=== PATIENT | male | born 1990 | race American Indian/Alaskan Native ===

== ENCOUNTER 2017-01-04 23:39 | Emergency (ER) | payer OTHER ==
--- NOTE | 2017-01-05 05:26 | Emergency Department Report ---
HPI - General Chief Complaint: Dental/Oral Time Seen by Provider: 01/05/17 04:24 - HPI HPI: Patient here reported that he has right lower jaw pain 4 days denies any trauma. He said he thinks he has a toothache. He declined Tylenol in triage area. Denies any fever or chills pain is 3/10 and aching. Located to his right upper back tooth. Denies any nausea or vomiting. No accessed the dentist. Taking [id number] medication without any relief. ED Past Medical Hx - Past Medical History Previous Medical History?: No - Surgical History Past Surgical History?: No - Family History Family history: no significant - Social History Smoking Status: Never Smoker Substance Use Type: Alcohol Other Social History: single - Medications Home Medications: Home Medications Medication Instructions Recorded Confirmed Last Taken Type Carbamide Peroxide [Earwax 15 ml OT BID #1 09/01/15 Unknown Rx Treatment] Ibuprofen [Motrin 800 MG tab] 800 mg PO Q8HR PRN #30 tablet 09/01/15 Unknown Rx Loratadine/Pseudoephedrine 1 tab PO DAILY #20 tablet 09/01/15 Unknown Rx [Claritin-D 24Hr] Acetaminophen/Codeine [Tylenol 1 tab PO Q6H PRN #12 tab 01/05/17 Unknown Rx /Codeine # 3 tab] Amoxicillin [Amoxicillin TAB] 875 mg PO BID #20 tablet 01/05/17 Unknown Rx Ibuprofen [Motrin] 600 mg PO Q8H PRN #15 tablet 01/05/17 Unknown Rx ED Review of Systems ROS: Stated complaint: RT JAW PAIN Other details as noted in HPI Comment: All other systems reviewed and negative Constitutional: denies: chills, fever ENT: dental pain. denies: ear pain, throat pain, congestion Respiratory: no symptoms reported Cardiovascular: denies: chest pain, palpitations, edema, syncope Gastrointestinal: denies: abdominal pain, nausea, vomiting Musculoskeletal: denies: back pain, joint swelling, arthralgia, myalgia Skin: denies: rash Neurological: denies: headache, weakness, numbness, paresthesias, confusion, abnormal gait, vertigo Physical Exam - Physical Exam Vital Signs: Vital Signs 01/04/17 23:42 Temperature 98.3 F Pulse Rate 88 Respiratory 20 Rate Blood Pressure 138/99 [Right] O2 Sat by Pulse 100 Oximetry General: This is a 26-year-old male well-nourished well-developed in no acute distress. Physical Exam: Head: Normocephalic atraumatic Ears: BIateral TM pearly hunt .bilateral EAC without any redness swelling or drainage , NO DRAINAGE. No mastoid bone tenderness. Mouth: Moist, no pharyngeal erythema or exudate . UVULA midline and oral airways patent. Tongue is normal. Patient with multiple dental caries and cellulitic area around tooth #1, 2 and 32. Negative induration. Positive gingivitis. Neck: Nontender to palpate, supple, normal range of motion. No adenopathy. No c- spine tenderness. Nose: Bilateral normal nasal mucosa. Maxillary and frontal sinuses nontender to palpate. Eyes: Sclerae and conjunctiva without injection. Bilateral pupils equal and reactive to light. Bilateral lids are normal. Normal accommodation.BEOMI Lungs: Clear to auscultate bilaterally, no rhonchi wheezes or rales. Normal work of breathing and no chest wall tenderness CV: S1, S2. Regular rate and rhythm negative murmur. Capillary refill is less than 3 seconds Skin: Clean dry and intact, no rashes or lesions Psych: Normal mood and behavior ED Course Vital Signs 01/04/17 23:42 Temperature 98.3 F Pulse Rate 88 Respiratory 20 Rate Blood Pressure 138/99 [Right] O2 Sat by Pulse 100 Oximetry - Reevaluation(s) Reevaluation #1: 01/05/17 07:00 Patient refused plain Tylenol in triage area 01/05/17 07:01 ED Medical Decision Making - Medical Decision Making ED course: This is a 26-year-old male well-nourished well-developed here complaining of right lower jaw pain 4 days. Patient said he thinks he has a toothache or dental abscess. Patient did not have any fever or chills, no sore throat. He does not have access to a dentist. Upon examination, patient will multiple dental caries, gingivitis and cellulitis to oral mucosa. This was discussed with patient along with diagnosis and treatment plan. Patient refused pain medication in emergency room at triage area when he initially arrived. Patient will be placed on antibiotic and pain medication and to follow -up at [facility]. Assessment/plan 1. Gingivitis 2. Toothache 3. Oral cellulitis 4. Dental caries Patient discharged home with prescription for amoxicillin, Motrin and Tylenol 3 and given information for [facility] to call and Saturday to schedule an appointment for follow-up visit. I also given information and [facility] as he does not have a primary care physician for yearly physical exam. Patient discharged home in stable condition. Critical care attestation.: If time is entered above; I have spent that time in minutes in the direct care of this critically ill patient, excluding procedure time. ED Disposition Clinical Impression: Toothache, Dental caries, Cellulitis of oral soft tissues, Gingivitis Disposition: TO HOME OR SELFCARE Is pt being admited?: No Does the pt Need Aspirin: No Condition: Stable Instructions: Dental Caries (ED), Gingivitis (ED), Cellulitis (ED), Toothache ( ED) Additional Instructions: Please follow up at [facility] dental clinic call Saturday to schedule an appointment. Please take antibiotic as prescribed. Please do not drive or operate heavy machinery while taking Tylenol No. 3 as this medication will cause drowsiness Prescriptions: Acetaminophen/Codeine [Tylenol /Codeine # 3 tab] 1 tab PO Q6H PRN #12 tab PRN Reason: Toothache Amoxicillin [Amoxicillin TAB] 875 mg PO BID #20 tablet Ibuprofen [Motrin] 600 mg PO Q8H PRN #15 tablet PRN Reason: Pain Referrals: [facility] [Outside] - 2-3 Days [facility] [Outside] - 2-3 Days Forms: Work/School Release Form(ED)
[2017-01-05 07:16] VITALS: BP 158/99
== END 2017-01-05 07:16 | disposition home or self-care (01) ==
LOC: ED 23:39
DX: K02.9 Dental caries, unspecified (principal); K12.2 Cellulitis and abscess of mouth; K05.10 Chronic gingivitis, plaque induced
CPT/HCPCS: 99282

== ENCOUNTER 2017-08-21 10:46 | Emergency (ER) | payer SELFPAY ==
[2017-08-21 11:30] VITALS: BP 146/100
[2017-08-21 12:35] LABS: Bilirubin,Urine NEG (Negative); Blood,Urine MOD (Negative); Color,Urine Yellow (Yellow); Mucus,Urine FEW /HPF; Protein,Urine <15 mg/dL mg/dL (Negative); Urobilinogen,Urine < 2.0 mg/dL (<2.0)
[2017-08-21] MEDS ORDERED: ROCEPHIN IM ONE (13:15)
[2017-08-21] MEDS ORDERED: XYLOCAINE 1% MPF 5 mL INFILTRATI ONE (13:15)
[2017-08-21] MEDS ORDERED: ZITHROMAX PO ONE (13:16)
--- NOTE | 2017-08-21 13:22 | Emergency Department Report ---
ED General Adult HPI - General Chief complaint: Urogenital-Male Stated complaint: UTI Source: patient Mode of arrival: Ambulatory Limitations: No Limitations - History of Present Illness Initial comments: Patient is a 27-year-old male significant past medical history who presents with urinary discharge. Patient states that he has been having dysuria for the last couple days. He states pain is a 6 out of 10 in all on sodas makes it worse nothing makes it better. Patient states that he had similar symptoms in the past before the hospital he went to stated that he had a urinary tract infection and it was was due to sodas. Patient also states that he is sexually active denies having any penile discharge or fevers. - Related Data Previous Rx's Medication Instructions Recorded Last Taken Type Carbamide Peroxide [Earwax 15 ml OT BID #1 09/01/15 Unknown Rx Treatment] Ibuprofen [Motrin 800 MG tab] 800 mg PO Q8HR PRN #30 tablet 09/01/15 Unknown Rx Loratadine/Pseudoephedrine 1 tab PO DAILY #20 tablet 09/01/15 Unknown Rx [Claritin-D 24Hr] Acetaminophen/Codeine [Tylenol 1 tab PO Q6H PRN #12 tab 01/05/17 Unknown Rx /Codeine # 3 tab] Amoxicillin [Amoxicillin TAB] 875 mg PO BID #20 tablet 01/05/17 Unknown Rx Ibuprofen [Motrin] 600 mg PO Q8H PRN #15 tablet 01/05/17 Unknown Rx Sulfamethoxazole/Trimethoprim 1 each PO Q12HR #10 tablet 08/21/17 Unknown Rx [Bactrim Ds Tablet] Allergies Allergy/AdvReac Type Severity Reaction Status Date / Time No Known Allergies Allergy Verified 09/01/15 16:53 ED Review of Systems ROS: Stated complaint: UTI Other details as noted in HPI Constitutional: denies: chills, fever Eyes: denies: eye pain, eye discharge, vision change ENT: denies: ear pain, throat pain Respiratory: denies: cough, shortness of breath, wheezing Cardiovascular: denies: chest pain, palpitations Endocrine: no symptoms reported Gastrointestinal: denies: abdominal pain, nausea, diarrhea Genitourinary: dysuria. denies: urgency Musculoskeletal: denies: back pain, joint swelling, arthralgia Skin: denies: rash, lesions Neurological: denies: headache, weakness, paresthesias Psychiatric: denies: anxiety, depression Hematological/Lymphatic: denies: easy bleeding, easy bruising ED Past Medical Hx - Past Medical History Hx Hypertension: Yes - Surgical History Past Surgical History?: No - Social History Smoking Status: Current Some Day Smoker Substance Use Type: Alcohol - Medications Home Medications: Home Medications Medication Instructions Recorded Confirmed Last Taken Type Carbamide Peroxide [Earwax 15 ml OT BID #1 09/01/15 Unknown Rx Treatment] Ibuprofen [Motrin 800 MG tab] 800 mg PO Q8HR PRN #30 tablet 09/01/15 Unknown Rx Loratadine/Pseudoephedrine 1 tab PO DAILY #20 tablet 09/01/15 Unknown Rx [Claritin-D 24Hr] Acetaminophen/Codeine [Tylenol 1 tab PO Q6H PRN #12 tab 01/05/17 Unknown Rx /Codeine # 3 tab] Amoxicillin [Amoxicillin TAB] 875 mg PO BID #20 tablet 01/05/17 Unknown Rx Ibuprofen [Motrin] 600 mg PO Q8H PRN #15 tablet 01/05/17 Unknown Rx Sulfamethoxazole/Trimethoprim 1 each PO Q12HR #10 tablet 08/21/17 Unknown Rx [Bactrim Ds Tablet] ED Physical Exam - General Limitations: No Limitations General appearance: alert, in no apparent distress - Head Head exam: Present: atraumatic, normocephalic - Eye Eye exam: Present: normal appearance - ENT ENT exam: Present: mucous membranes moist - Neck Neck exam: Present: normal inspection - Respiratory Respiratory exam: Present: normal lung sounds bilaterally. Absent: respiratory distress - Cardiovascular Cardiovascular Exam: Present: regular rate, normal rhythm. Absent: systolic murmur, diastolic murmur, rubs, gallop - GI/Abdominal GI/Abdominal exam: Present: soft, normal bowel sounds - Rectal Rectal exam: Present: deferred - Extremities Exam Extremities exam: Present: normal inspection - Back Exam Back exam: Present: normal inspection - Neurological Exam Neurological exam: Present: alert, oriented X3 - Psychiatric Psychiatric exam: Present: normal affect, normal mood - Skin Skin exam: Present: warm, dry, intact, normal color. Absent: rash ED Course Vital Signs 08/21/17 11:27 Temperature 97.6 F Pulse Rate 92 H Respiratory 20 Rate Blood Pressure 146/100 O2 Sat by Pulse 100 Oximetry ED Medical Decision Making - Lab Data Lab Results 08/21/17 Range/Units Unknown Urine Color Yellow (Yellow) Urine Turbidity Clear (Clear) Urine pH 5.0 (5.0-7.0) Ur Specific Fleming 1.018 (1.003-1.030) Urine Protein <15 mg/dl (Negative) mg/dL Urine Glucose (UA) Neg (Negative) mg/dL Urine Ketones Neg (Negative) mg/dL Urine Blood Mod (Negative) Urine Nitrite Neg (Negative) Urine Bilirubin Neg (Negative) Urine Urobilinogen < 2.0 (<2.0) mg/dL Ur Leukocyte Esterase Mod (Negative) Urine WBC (Auto) 66.0 H (0.0-6.0) /HPF Urine RBC (Auto) 3.0 (0.0-6.0) /HPF Urine Mucus Few /HPF - Medical Decision Making Chief medical diagnosis: Gonorrhea Infection Differential medical diagnosis: Chlamydia infection, cystitis, urethritis I will give patient I am Rocephin and oral doxycycline also will send patient home with a five day course of Bactrim. Discussed plan with patient and patient agrees additional verbal discharge instructions were given. Critical care attestation.: If time is entered above; I have spent that time in minutes in the direct care of this critically ill patient, excluding procedure time. ED Disposition Clinical Impression: Urethritis UTI (urinary tract infection) Qualifiers: Urinary tract infection type: site unspecified Hematuria presence: without hematuria Qualified Code(s): N39.0 - Urinary tract infection, site not specified Disposition: DC-01 TO HOME OR SELFCARE Is pt being admited?: No Does the pt Need Aspirin: No Condition: Stable Instructions: Nonspecific Urethritis in Men (ED) Prescriptions: Sulfamethoxazole/Trimethoprim [Bactrim Ds Tablet] 1 each PO Q12HR #10 tablet Referrals: ANJELICA CRAIG MD [Staff Physician] - 3-5 Days Forms: STI Treatment and Prevention
== END 2017-08-21 13:26 | disposition home or self-care (01) ==
LOC: ED 10:46
DX: N34.2 Other urethritis (principal); F17.200 Nicotine dependence, unspecified, uncomplicated; I11.0 Hypertensive heart disease with heart failure
CPT/HCPCS: 81001; 96372; 99283; J0696